=== PATIENT | male | born 1955 | race Caucasian/White ===

== ENCOUNTER 2017-01-14 22:16 | Emergency (ER) | payer OTHER ==
[2017-01-14 22:30] VITALS: BP 116/79; PULSE 90; RESP 15; TEMP 98.2; O2SAT 95
[2017-01-14] MEDS ORDERED: CEPHALEXIN 500 MG CAP PO ONE (22:36)
--- NOTE | 2017-01-14 22:38 | UCPHY ---
H & P Time Seen by Provider: 01/14/17 22:31 Patient Type: New HPI/ROS: This patient complains of left 3rd finger paronychial region swelling and discomfort. He recently trimmed the fingernail and had minimal jam but does not think that the was significant enough to cause injury. He bumped into a piece of furniture. There has been no associated symptoms. ROS: No purulent drainage. No fevers. No other musculoskeletal complaints. Past Medical/Surgical History: Healthy Smoking Status: Former smoker Physical Exam: Physical Exam Vital signs are normal. General: No acute distress Cardiac: Brisk capillary refill is intact throughout. Extremities: Atraumatic normal except for left 3rd finger that exam is notable for mild paronychial swelling and erythema with no fluctuance consistent with paronychia. There is no the IP or PIP joint swelling no malrotation no distal phalanx swelling. No subungual hematoma or other abnormalities. Skin: No rash or pallor. Neuro: Alert with no sensorimotor deficits to the affected digit. Constitutional: Initial Vital Signs Temperature (C) 36.8 C 01/14/17 22:28 Heart Rate 90 01/14/17 22:28 Respiratory Rate 15 01/14/17 22:28 Blood Pressure 116/79 01/14/17 22:28 O2 Sat (%) 95 01/14/17 22:28 O2 Delivery Mode Room Air Allergies/Adverse Reactions: No Known Allergies Allergy (Unverified 01/14/17 22:28) Home Medications: Medication Instructions Recorded Cephalexin [Keflex (*)] 500 mg PO TID #21 cap 01/14/17 MDM/Departure - MDM Medications Given: Discontinued Medications Cephalexin HCl (Keflex) 500 mg PO EDNOW ONE PRN Reason: Protocol Stop: 01/14/17 22:37 Last Admin: 01/14/17 22:48 Dose: 500 mg ED Course/Re-evaluation: Keflex p. o.. I counseled patient regarding paronychia - Depart Disposition: Home, Routine, Self-Care Clinical Impression: Paronychia Qualifiers: Laterality: left Qualified Code(s): L03.012 - Cellulitis of left finger Condition: Good Instructions: Paronychia (ED) Additional Instructions: Diagnosis: Paronychia (bacterial finger infection) Plan: Warm soapy water soaks twice a day until symptoms improve with gentle massage the area. Keflex antibiotic as prescribed Typically this takes 3 or 4 days to improve. Return for any significant worsening despite the treatment plan Prescriptions: Cephalexin [Keflex (*)] 500 mg PO TID #21 cap Referrals: JOSE GUERIN [Primary Care Provider] - As per Instructions - PQRS PQRS Measurement: NA
== END 2017-01-14 22:50 | disposition home or self-care (01) ==
LOC: CED 22:16
DX: L03.012 Cellulitis of left finger (principal); Z87.891 Personal history of nicotine dependence
CPT/HCPCS: 99203-PO; G0463-PO